=== PATIENT | female | born 1995 | race Hispanic/Latino ===

== ENCOUNTER 2022-04-17 20:16 | Day surgery (SDC) | payer OTHER ==
[2022-04-17 20:42] VITALS: BMI 39.4
[2022-04-17] MEDS ORDERED: hydrALAZINE 20 MG/ML VIAL SLOW IVP PRN (20:50)
== END 2022-04-17 21:07 | disposition home or self-care (01) ==
LOC: CSHLD/OP 20:16
PROVIDERS: ATTEND Family Medicine
DX: O36.8130 Decreased fetal movements, third trimester, not applicable or unspecified (principal); Z3A.30 30 weeks gestation of pregnancy
CPT/HCPCS: 99282

== ENCOUNTER 2022-06-19 19:30 | Inpatient (IN) | payer MEDICAID, OTHER ==
[2022-06-20 04:22] VITALS: BMI 44.6
[2022-06-20 05:35] LABS: Hemoglobin 11.9 g/dL (12.0-15.5); Mean Corpuscular HGB CONC 33.7 g/dL (32.0-36.0); Mean Corpuscular Hemoglobin 29.5 pg (27.0-33.0); Mean Corpuscular Volume 87.6 fl (81.6-98.3); Mean Platelet Volume 10.4 fl (7.4-10.4); Platelet Count 295 10x3/uL (150-450); RBC Distribution Width 14.9 % (11.5-14.5); Red Blood Cell (RBC) Count 4.03 10x6/uL (3.90-5.03); White Blood Cell (WBC) Count 10.8 10x3/uL (3.5-10.5)
[2022-06-20] MEDS: Misoprostol 100 MCG TAB VAG SCH ×2 (05:37→08:41)
[2022-06-20] MEDS ORDERED: Ondansetron PF 4 MG/2 ML Vial IVP PRN ×3 (05:45→16:09)
[2022-06-20] MEDS ORDERED: hydrALAZINE 20 MG/ML VIAL SLOW IVP PRN ×2 (05:45→16:09)
[2022-06-20] MEDS ORDERED: NS w/ Oxytocin 30 units 500 ML IVPB SCH (05:45)
[2022-06-20] MEDS ORDERED: Lactated Ringer's 1,000 ML IV SCH (05:45)
[2022-06-20] MEDS ORDERED: NS w/ Oxytocin 30 units 500 ML IV SCH ×2 (05:45→16:09)
[2022-06-20] MEDS ORDERED: Promethazine HCl 25 MG/ML VIAL IM PRN ×3 (05:45→16:09)
[2022-06-20] MEDS ORDERED: Lidocaine 1% (PF) 30 ML VIAL SC PRN (05:45)
[2022-06-20 06:03] LABS: HBSAg Index 0.13 S/CO (0-0.99); Hep B Surf Ag Non-Reactive S/CO (NonReactive)
[2022-06-20 06:05] LABS: Syphilis Antibody Nonreactive (Nonreactive); Syphilis Antibody Index 0.04 S/CO (<1.00 Non-Reactive)
[2022-06-20 06:19] LABS: SARS-CoV-2 NAA Rapid Test Not Detected (NotDetected)
[2022-06-20] MEDS ORDERED: Bupivacaine 0.25% HCL 30 ML VIAL ONE (08:00)
[2022-06-20] MEDS ORDERED: Butorphanol Tartrate 1 MG/ML VIAL ONE (10:45)
[2022-06-20] MEDS ORDERED: Fentanyl 2 mcg/Bup 0.1% Cadd 100 ML ONE (11:01)
[2022-06-20] MEDS ORDERED: Butorphanol Tartrate 1 MG/ML VIAL SLOW IVP PRN (11:15)
[2022-06-20] MEDS ORDERED: diphenhydrAMINE 50 MG/ML VIAL IVP PRN (12:20)
[2022-06-20] MEDS ORDERED: Naloxone HCl 0.4 mg/ml Vial IVP PRN ×2 (12:20)
[2022-06-20] MEDS ORDERED: Moisturizing Cream (Eucerin) 113 GM JAR TOP PRN (12:20)
[2022-06-20] MEDS ORDERED: Lactated Ringer's 500 ML IV PRN (12:20)
[2022-06-20] MEDS ORDERED: ePHEDrine Sulfate 50 MG/10 ML VIAL SLOW IVP PRN (12:20)
[2022-06-20] MEDS ORDERED: Acetaminophen 325 MG TAB PO PRN (12:20)
[2022-06-20] MEDS ORDERED: Fentanyl 2 mcg/Bupivacaine 0.1% Cassette 100 ML EPIDURAL SCH (12:30)
[2022-06-20] MEDS ORDERED: Communication Order-Pharmacy FS SCH (12:30)
[2022-06-20] MEDS ORDERED: HYDROcodone/Acetaminophen 5/325 mg Tablet PO PRN (16:09)
[2022-06-20] MEDS ORDERED: diphenhydrAMINE 25 MG CAP PO PRN (16:09)
[2022-06-20] MEDS ORDERED: Lanolin Ointment 7 GM TUBE TOP PRN (16:09)
[2022-06-20] MEDS ORDERED: Milk Of Magnesia 30 ML UDCUP PO PRN (16:09)
[2022-06-20] MEDS ORDERED: Benzocaine-Menthol 82.5 ML CAN TOP PRN (16:09)
[2022-06-20] MEDS ORDERED: Bisacodyl 10 MG SUPP PR PRN (16:09)
[2022-06-20] MEDS ORDERED: Zolpidem Tartrate 5 MG TAB PO PRN (16:09)
[2022-06-20] MEDS: Ferrous Sulfate 325 MG TAB PO SCH (16:51)
[2022-06-20] MEDS: Ibuprofen 800 MG TAB PO SCH ×2 (18:09→20:29)
[2022-06-20] MEDS: Docusate 100 MG CAP PO SCH (20:29)
[2022-06-21] MEDS: Ibuprofen 800 MG TAB PO SCH ×2 (05:49→17:11)
[2022-06-21] MEDS: Ferrous Sulfate 325 MG TAB PO SCH ×2 (08:36→17:11)
[2022-06-21] MEDS: Docusate 100 MG CAP PO SCH (09:00)
[2022-06-21] MEDS ORDERED: Prenatal Vitamin 1 TAB PO SCH (09:00)
[2022-06-21 18:04] VITALS: BP 137/80; TEMP 98
[2022-06-23] MEDS ORDERED: Boostrix 0.5 ML (Tdap) VIAL (>/=7 yrs of age) IM ONE (16:09)
== END 2022-06-21 17:20 | disposition home or self-care (01) | DRG 807 ==
LOC: CSHLD 06-20 03:41 → CSHPED 06-20 16:25
PROVIDERS: ADMIT Family Medicine; ATTEND Family Medicine
PROC: 10E0XZZ Delivery of Products of Conception, External Approach (ICD-10-PCS; principal; 2022-06-20)
PROC: 10907ZC Drainage of Amniotic Fluid, Therapeutic from Products of Conception, Via Natural or Artificial Opening (ICD-10-PCS; 2022-06-20)
PROC: 10H07YZ Insertion of Other Device into Products of Conception, Via Natural or Artificial Opening (ICD-10-PCS; 2022-06-20)
PROC: 0HQ9XZZ Repair Perineum Skin, External Approach (ICD-10-PCS; 2022-06-20)
PROC: 3E0P7VZ Introduction of Hormone into Female Reproductive, Via Natural or Artificial Opening (ICD-10-PCS; 2022-06-20)
PROC: 0T9B70Z Drainage of Bladder with Drainage Device, Via Natural or Artificial Opening (ICD-10-PCS; 2022-06-20)
DX: O99.214 Obesity complicating childbirth (principal); Z37.0 Single live birth; E66.9 Obesity, unspecified; O99.344 Other mental disorders complicating childbirth; Z3A.39 39 weeks gestation of pregnancy; O70.0 First degree perineal laceration during delivery; Z20.822 Contact with and (suspected) exposure to COVID-19; O69.1XX0 Labor and delivery complicated by cord around neck, with compression, not applicable or unspecified; O69.89X0 Labor and delivery complicated by other cord complications, not applicable or unspecified; O99.62 Diseases of the digestive system complicating childbirth; K21.9 Gastro-esophageal reflux disease without esophagitis; F32.A Depression, unspecified; O99.52 Diseases of the respiratory system complicating childbirth; J45.909 Unspecified asthma, uncomplicated
CPT/HCPCS: 51702; 85027; 86780; 86850; 86900; 86901; 87340; J0595; J2590; S0020; U0002